=== PATIENT | female | born 1990 | race Caucasian/White ===

== ENCOUNTER 2022-05-31 09:03 | Day surgery (SDC) | payer OTHER ==
[~2022-05-31] VITALS: Ht 154.9 cm; Wt 90.9 kg
--- NOTE | ~2022-05-31 | OR ---
[facility] [address] [place], [place] [address] Draft DATE OF OPERATION: 05/31/2022 SURGEON: Dane Robertson DO JOY LOADING MACHINE OPERATOR: Iraj Diaz MD PROCEDURE: Laparoscopic lysis of adhesions, hysteroscopy, D and C. BLOOD LOSS: 50 mL. ANESTHESIA: General. FINDINGS: Large midline omental adhesion extending from the umbilicus inferiorly and laterally towards the left tube which was found to be the mesosalpinx at the mid-isthmic portion, the site of prior ligation. Round ligament was adherent to left pelvic sidewall. Bilateral ovaries appeared normal. Uterus appears mildly enlarged, but otherwise normal. No evidence of endometriosis lesions and bilateral ovarian fossa, posterior cul-de-sac or overlying the bladder, hysteroscopy, normal-appearing endometrial cavity. Bilateral tubal ostia visualized. INDICATIONS: The patient is a 32-year-old female, status post , tubal ligation, and lap crow, who presents for evaluation of significant dysmenorrhea and heavy menstrual bleeding. She strongly desires definitive surgical management in the form of a hysterectomy and has previously had retained IUD requiring surgical removal. Risks, benefits, and alternatives to diagnostic laparoscopy with hysteroscopy D and C for further evaluation were discussed and patient elected to proceed. DESCRIPTION OF PROCEDURE: The patient was taken to the operating room where she was positioned in dorsal lithotomy, placed under general anesthesia. She was prepped and draped in normal sterile fashion. Weighted speculum was placed in the vagina. Anterior lip of the cervix was grasped with an Allis clamp and cervix was attempted to be sequentially dilated with Hegar, however, resistance was met at the internal loss. Hulka clamp was placed. Surgeon's gloves were changed and attention was turned to the abdomen after PATIENT NAME: ISABELLA ARCOS OPERATIVE REPORT DATE OF : [birth year] REPORT #: [id number] PHYSICIAN: DANE ROBERTSON DO PCP: EDER LI PAC REPORT IS CONFIDENTIAL AND NOT TO BE RELEASED WITHOUT AUTHORIZATION [facility] [address] [place], [place] [address] Draft placement of Herrera catheter. An infraumbilical incision was made with a scalpel through a prior scar and carried down to the underlying layer of fascia with blunt and sharp dissection with Metzenbaum scissors. Fascia was grasped with hemostats elevated and incised with Metzenbaum scissors. Stay suture was placed on each of the superior and inferior margins of fascia with 0 Vicryl. The peritoneum was entered bluntly and finger sweep was significant for a thick intraabdominal adhesion. Decision was made to proceed with additional entry at Astorga's point. Stomach was evacuated by Anesthesia and local anesthetic was infiltrated at astorga's point in the left upper quadrant. Incision was made with a scalpel. A 5 mm trocar was used for direct entry. Proper placement was confirmed with the scope. Abdomen was insufflated with CO2 gas and was inspected demonstrating the significant intraabdominal adhesion. Once the pneumoperitoneum was fully achieved, an additional right lower quadrant trocar was placed after infiltration with local anesthetic and incision with a scalpel, also under direct visualization without complication or difficulty. LigaSure device was used to take down the omental adhesion working from the umbilicus laterally to the incorporated area of the mesosalpinx restoring full visualization and normal anatomy as much as possible. Trendelenburg positioning was then used to fully evaluate the pelvis, cul-de-sac for abnormalities with scarring as noted above and notable absence of endometriosis lesions. Tisseel was applied over the anterior abdominal wall at the site of the prior adhesion and anterior abdominal wall was monitored as trocars were removed and pneumoperitoneum was evacuated. Fascia was closed with 0 Vicryl in a running fashion. Stay sutures were tied overlying the Vicryl closure. Skin was closed with 4-0 Monocryl. Attention was then turned to the vagina. Hulka uterine manipulator was removed and hysteroscope was introduced and able to be passed into the uterine cavity without significant difficulty. Endometrial cavity was surveyed with normal findings as noted above. MyoSure Lite device was used to circumferentially curette the entire endometrial cavity with endometrial curetting submitted to pathology. All instrumentation was removed. Significant bleeding was noted from the cervix and uterus. 1 g TXA was administered. Bleeding at the site of the Hulka clamp was noted and a single stitch of 0 chromic in a [id number]-zd-ilats fashion was placed with resulting hemostasis. A 2nd laceration was noted on the left vaginal sidewall and was similarly repaired with chromic in a [id number] fashion with resulting hemostasis and uterine bleeding was noted to slow significantly after administration of TXA. Sponge and instrument counts were correct and the patient was taken to recovery in stable and satisfactory condition with plans to discuss definitive surgical management of AUB in the form of a hysterectomy at her postop visit. Dane Robertson DO PATIENT NAME: ISABELLA ARCOS Gilberto OPERATIVE REPORT DATE OF : [birth year] REPORT #: [id number] PHYSICIAN: DANE ROBERTSON DO PCP: EDER LI PAC REPORT IS CONFIDENTIAL AND NOT TO BE RELEASED WITHOUT AUTHORIZATION [facility] [address] [place], [place] [address], [place] [address] Draft EM/MODL /[id number] Copies: ~ PATIENT NAME: ISABELLA ARCOS OPERATIVE REPORT DATE OF : [birth year] REPORT #: [id number] PHYSICIAN: DANE ROBERTSON DO PCP: EDER LI PAC REPORT IS CONFIDENTIAL AND NOT TO BE RELEASED WITHOUT AUTHORIZATION
--- NOTE | 2022-05-31 13:59 | NUR ---
05/31/22 1359 Sheets,Ilsa 1333 PT ARRIVED TO PACU WITH ORAL AIRWAY IN PLACE AND 6L VIA MASK. RESP EVEN AND UNLABORED. JAW THRUST NEEDED OFF AND ON. 1334 JAW THRUST NO LONGER NEEDED. 1340 PT WOKE TO TACTILE STIMULI AND ORAL AIRWAY REMOVED. PT LOOKING AROUND ROOM AND IS REORIENTED. 1341 O2 REMOVED. PT DENIES NAUSEA AND PAIN. 1350 PLAN OF CARE DISCUSSED, PT REPORT 3/10 TOLERABLE PAIN.
[2022-05-31] MEDS ORDERED: IBUPROFEN800 MG PO (15:23)
[2022-05-31] MEDS ORDERED: PERCOCET 5-3251 EACH PO (15:23)
--- NOTE | 2022-05-31 15:47 | NUR ---
1415: PATIENT BACK IN DAY SURGERY ROOM FROM PACU. RATES PAIN 4/10. GIVEN RAYRAY CRACKERS TO EAT. ICE WATER PLACED AT BEDSIDE. IV SITE WNL. SCDs ON. ABDOMEN WITH 3 LAP SITES. LUQ SITE WITH BANDAID CDI. RLQ WITH BANDAID WITH SCANT AMOUNT OF DRAINAGE. UMBILICAL SITE WITH BANDAID AND MODERATE AMOUNT OF BLOODY DRAINAGE. REINFORCED WITH FLUFF GUAZE AND MEDIPORE TAPE. PERIPAD IN PLACE IS CLEAN, DRY AND INTACT. AT BEDSIDE. CALL LIGHT WITHIN REACH. 1435: PATIENT ASSISTED OOB AND TO BATHROOM. GAIT STEADY. VOID WITHOUT DIFFICULTY APPROXIMATELY 100 ML. GAIT STEADY BACK TO ROOM. PATIENT GETTING DRESSED. 1500: DR. STRAUSS IN TO SPEAK WITH PATIENT AND . 1530: PATIENT MEDICATED FOR 5/10 PAIN WITH 1 TAB OF PERCOCET. DISCHARGE INSTRUCTIONS GIVEN TO PATIENT AND . 1550: IV DC'D WNL. TIP INTACT. DRESSING APPLIED. PATIENT UP TO RESTROOM INDEPENDENTLY. GAIT STEADY. PATIENT DISCHARGED TO HOME VIA WHEELCHAIR WITH .
== END 2022-05-31 15:50 | disposition home or self-care (01) ==
LOC: DS 09:03 → OPS 09:03 → DS 11-28 09:00
PROVIDERS: ATTEND Obstetrics & Gynecology
PROC: 0UDB8ZZ Extraction of Endometrium, Via Natural or Artificial Opening Endoscopic (ICD-10-PCS; principal; 2022-05-31 11:00)
DX: N93.9 Abnormal uterine and vaginal bleeding, unspecified (principal); N94.6 Dysmenorrhea, unspecified; Z98.51 Tubal ligation status; Z98.891 History of uterine scar from previous surgery
CPT/HCPCS: J1100; J1885; J2405; J2704; J3010; J7121

== ENCOUNTER 2022-08-09 06:50 | Day surgery (SDC) | payer OTHER ==
[~2022-08-09] VITALS: Ht 154.9 cm; Wt 94.1 kg
--- NOTE | ~2022-08-09 | OR ---
[facility] [address] [place], [place] [address] Draft DATE OF OPERATION: 08/09/2022 SURGEON: Dane Robertson DO DEVELOPMENT WRITER: Dr. Bliss. PROCEDURE: Total laparoscopic hysterectomy, bilateral salpingectomy, lysis of adhesions, cystoscopy. PREOPERATIVE DIAGNOSES: Abnormal uterine bleeding, dysmenorrhea, pelvic adhesions. POSTOPERATIVE DIAGNOSES: Abnormal uterine bleeding, dysmenorrhea, pelvic adhesions. ANESTHESIA: General. BLOOD LOSS: 100 mL. COMPLICATIONS: None. FINDINGS: Significant pelvic adhesions, normal-appearing ovaries and tubes, status post bilateral tubal ligation. Otherwise normal-appearing uterus. INDICATIONS: The patient is a 32-year-old female with history of significant heavy menstrual bleeding. She has prior history of trial of IUD with required laparoscopic removal of IUD and personal history of migraines with auras contraindicating estrogen containing contraceptive, hysteroscopic endometrial sampling, negative for hyperplasia or malignancy. The patient strongly desired definitive surgical management. Risks, benefits, and alternatives to TLH, BS, and cysto were discussed at length and she strongly desired to proceed. She was initially scheduled for this procedure and was found to be thrombocytopenic with platelets of 102; on repeat, they were 99. Heme-Onc was consulted, recommended a steroid burst after which platelets improved to 247, and we were able to proceed. PATIENT NAME: ISABELLA ARCOS OPERATIVE REPORT DATE OF : [birth year] REPORT #: [id number] PHYSICIAN: DANE ROBERTSON DO PCP: EDER LI PAC REPORT IS CONFIDENTIAL AND NOT TO BE RELEASED WITHOUT AUTHORIZATION [facility] [address] [place], [place] [address] Draft DESCRIPTION OF PROCEDURE: The patient was taken back to the operating room. She was given 2 g Ancef, who was positioned in dorsal lithotomy, was prepped and draped in normal sterile fashion. Weighted speculum was placed in the vagina. Cervix was sequentially dilated with Hegar dilators with some difficulty. VCare uterine manipulator was placed. All other instrumentation was removed. Surgeon's gloves were changed and attention was turned to the abdomen. Local anesthetic was injected in the infraumbilical scar. Incision was made through the scar with a scalpel and carried down to the underlying fascia with blunt and sharp dissection with Metzenbaum scissors. Fascia was grasped with hemostats, elevated and incised with Metzenbaum scissors. Stay suture of 0 Vicryl was placed on each of the superior and inferior margins of fascia. Peritoneum was grasped with tonsil and incised with Metzenbaum scissors. Finger sweep confirmed intraabdominal placement and Shana on trocar was placed without difficulty. Pneumoperitoneum was achieved with CO2 gas. Laparoscopic camera confirmed intraabdominal placement. Assist port was made in the left lower quadrant. After infiltration with local anesthetic, 5 mm incision was made with the scar and trocar was placed under direct visualization without complication. Right lower quadrant incision was made through a prior scar from laparoscopy after infiltration with local anesthetic. An 8 mm expanding trocar was placed without difficulty under direct visualization. The patient was then placed in Trendelenburg and blunt graspers were used to elevate bowel from the pelvis, which was then surveyed with findings as noted above. Tubal remnants were then excised starting with left distal tube at the fimbriated end followed by left proximal tube followed by right distal and proximal tube, which were able to be removed as one. Each piece was removed under direct visualization for submission to pathology. Right round ligament was cauterized and cut with LigaSure device, which was continued to be used for the remainder of the case except as noted. Left utero-ovarian ligament was cauterized and cut followed by left round ligament, broad ligament, developed poorly in 2 planes, but the anterior leaf was dissected inferiorly towards the cervix about medially at the level of the VCare cup initiating a bladder flap. Some bladder adhesions were noted consistent with the patient's prior history of x3 and due to scarring, planes were difficult to delineate. Posterior broad ligament was then dissected down to the level of the uterosacral ligaments brought medially between the uterosacral ligaments, allowing skeletonization of the uterine vessels and cauterization of those vessels. In the similar manner, on the right, right utero-ovarian ligament was cauterized and cut level of the round ligament. Significant scarring was noted on the right as well once again making delineation of planes difficult. Anterior leaf of the broad ligament was brought down to the level of the cervix and then medially to meet the prior dissection and further developed the bladder flap. Posterior leaf of the broad ligament was brought down and medially at the level of the cervix also meeting prior dissection with some difficulty maintaining the avascular plane. Uterine vessels were skeletonized, cauterized, and cut, and uterus was noted to fully petey with good PATIENT NAME: ISABELLA ARCOS OPERATIVE REPORT DATE OF : 91 REPORT #: [id number] PHYSICIAN: DANE ROBERTSON DO PCP: EDER LI PAC REPORT IS CONFIDENTIAL AND NOT TO BE RELEASED WITHOUT AUTHORIZATION [address] [address] Draft hemostasis. At this point, LigaSure device was removed. Harmonic Sonicision device was introduced and used for the colpotomy sting within the groove of the [employer] uterine manipulator. The colpotomy was completed without difficulty. Uterus was delivered vaginally. Vaginal packing was placed. Surgeon's gloves were again changed and attention was returned to the abdomen. Minor bleeding was noted at the right apex, which was cauterized with LigaSure device. Once hemostasis was achieved, vaginal cuff was closed with V-Loc suture using the Endo Stitch device in a running fashion. Tisseel was applied overlying the cuff closure with excellent hemostasis noted. Pneumoperitoneum was evacuated monitoring operative site. Continued hemostasis was noted. Fascia was closed with 0 Vicryl in a running fashion with significant challenge. Subcutaneous layer of the fascial incision was closed with 4-0 Monocryl and the skin was closed with 4-0 Monocryl at each incision site. Herrera catheter was removed. Cystoscope was introduced. Bladder was carefully inspected with dome noted to be intact. No signs of puckering or suture were visualized. Bladder distended appropriately and bilateral ureteral jets were visualized. All instrumentation was removed. Herrera catheter was replaced. Sponge and instrument counts were correct, and the patient was taken to recovery in stable and satisfactory condition. DO TRENT Mahoney/AMELIAL /[id number] Copies: ~ PATIENT NAME: ISABELLA ARCOS OPERATIVE REPORT DATE OF : [birth year] REPORT #: [id number] PHYSICIAN: DANE ROBERTSON DO PCP: EDER LI PAC REPORT IS CONFIDENTIAL AND NOT TO BE RELEASED WITHOUT AUTHORIZATION
[~2022-08-09 06:50] MED LIST: IBUPROFEN800 MG PO; PERCOCET 5-3251 EACH PO
--- NOTE | 2022-08-09 12:29 | NUR ---
08/09/22 1229 Christy Simpson 1213- PT ARRIVES TO PACU REACTIVE TO VOICE. PT FALLS TO SLEEP EASILY WHEN NOT BEING TALKED TO. RESP EVEN AND UNLABORED. OXYGEN SAT HIGH 90'S TO 100% ON 6L VIA MASK. 1222- OXYGEN TITRATED OFF. PT IS MORE ALERT AND REPORTS PAIN IS "THERE", RATING THE PAIN A 6/10. PT DENIES NEEDING ANYTHING FOR PAIN AT THIS TIME.
--- NOTE | 2022-08-09 13:22 | NUR ---
PT ALERT, ORIENTED AND SUPPORTED BY HER YARA. BOTH SEEM INFORMED, YARA WILL REMAIN FOR DC. THANKED ME FOR VISIT, GAVE BLESSING
--- NOTE | 2022-08-09 13:39 | NUR ---
LE 1305 PATIENT BACK FROM PACU. PATIENT REPORT RECIEVED FROM KELLY GUADARRAMA. PATIENT IS DROWSY BUT ORIENTED. BREATHING EQUAL AND UNLABORED. OXYGEN SATURATIONS ABOVE 95% ON ROOM AIR. PATIENT PAIN A 3/10 TOLERABLE AT THIS TIME BUT STATES "CLIMBING." SURGICAL SITE HAS SMALL AMOUNT OF RED DRAINAGE. MARIA LUZ PAD HAS NO DRAINAGE AT THIS TIME. IVF INFUSING. SCD'S ON. NO QUESTIONS OR FUTHER NEEDS. LE 1310 PATIENT COOPER CATH REMOVED 200 MLS OF YELLOW AND CLEAR URINE.
--- NOTE | 2022-08-09 13:44 | NUR ---
LE 1335 PATIENT PAIN IS A 5/10 AND DENIES BEING NAUSEATED. ABLE TO EAT PUDDING AND DRINK WATER. PRN PAIN MEDICINE GIVEN.
--- NOTE | 2022-08-09 14:19 | NUR ---
LE 1410 PATIENT ALERT AND ORIENTED. PATIENT PAIN IS A 5/[address] PAIN MEDICINE[address] STRAUSS NOTIFIED NEW ORDERS GIVEN. PATIENT BREATHING EQUAL AND UNLABORED. OXYGEN SATURATIONS ABOVE 90% ON ROOM AIR. SURGICAL SITE HAS SMALL AMOUNT OF RED DRAINAGE. SMALL SPOTTING ON MARIA LUZ PAD. IVF INFUSING. SCD'S ON. PATIENT DRINKING WATER AND TALKING TO . CALL LIGHT WITHIN REACH NO FUTHER NEEDS. NO QUESTIONS AT THIS TIME.
--- NOTE | 2022-08-09 14:34 | NUR ---
LE 1425 PATIENT GIVEN PRN PAIN MEDICINE.
--- NOTE | 2022-08-09 15:44 | NUR ---
LE 1500 PATIENT UP TO THE RESTROOM. PATIENT ABLE TO VOID 200 MLS OF CLEAR AND YELLOW URINE. PATIENT STATES "I FEEL MUCH BETTER WALKING AROUND." LE 1535 PATIENT HAS MET DISCHARGE CRITERIA. PATIENT GIVEN DISCHARGE INSTRUCTIONS AND UNDERSTOOD. NO QUESTIONS AT THIS TIME. IV D/C'D WNL. PATIENT DRESSED SELF AND TOLERATED IT WELL. PATIENT WHEELED OUT OF FACILITY NO FUTHER NEEDS.
--- NOTE | 2022-08-13 15:55 | PATH ---
[facility] [address] [place], [place] [address] Signed SPECIMEN(S): A UTERUS, CERVIX, BILATERAL TUBES SPECIMEN SOURCE: A. UTERUS, CERVIX, BILATERAL TUBES CLINICAL HISTORY: Abnormal uterine bleeding, dysmenorrhea, intra-abdominal adhesions. FINAL PATHOLOGIC DIAGNOSIS: Uterus, cervix, bilateral tubes: - Benign proliferative endometrium, negative for hyperplasia or atypia. - Benign endocervix and ectocervix. - Lower uterine segment defect measuring 1 cm, without significant atypia. - Benign bilateral oviducts. JVR:[facility]:C2NR MICROSCOPIC EXAMINATION: Histologic sections of all submitted blocks are examined by light microscopy. These findings, together with the gross examination, support the pathologic diagnosis. GROSS DESCRIPTION: The specimen, labeled and designated "Eunice Arcos, " and designated on the requisition "uterus, cervix, bilateral tubes," is received in formalin and consists of a 95.9 gram uterus and cervix with fallopian tubes. The uterus is 4.6 x 4.4 x 9.3 cm (cornu-cornu x anterior-posterior x fundus-ectocervix). The serosal surface is pink and smooth with adherent pink-white membranous tissue. The ectocervical mucosa is pale pink focally congested and disrupted. Serial sectioning of the cervix fails to demonstrate any gross abnormalities. The triangular endometrial cavity is lined by a pink-red smooth endometrium that has an average thickness of 0.3 cm. Sectioning through the uterus reveals a pink moderately trabeculated myometrium with one lower uterine segment defect that is 1.0 cm. The first fallopian tube is 3.5 x 0.7 cm, with delicate fimbriae. The serosa is violaceous and smooth. Cut sections reveal a pinpoint lumen. The second fallopian tube is 4.3 x 0.9 cm, with delicate fimbriae. The serosa is violaceous and smooth and inked. Cut sections reveal a pinpoint lumen. Research Chemist sections are submitted in five PATIENT NAME: ISABELLA ARCOS PATHOLOGY DATE OF : [birth year] REPORT #: [id number] PHYSICIAN: DARRIN SANABRIA PCP: EDER LI PAC REPORT IS CONFIDENTIAL AND NOT TO BE RELEASED WITHOUT AUTHORIZATION [facility] [address] [place], [place] [address] Signed cassettes. Cassette Summary: (A1) first fallopian tube, entirely submitted (A2) second fallopian tube, entirely submitted (A3) cervix (A4-A5) uterine wall and lower uterine segment defect FB (under the direct supervision of a pathologist) The Gross Description was prepared using a voice recognition system. The report was reviewed for accuracy; however, sound-alike word errors, addition and/or deletions may occur. If there is any question about this report, please contact Client Services. PERFORMING LABORATORY: The technical component was performed by [employer], [address] [place] [id number] (CLIA# [id number]). Professional interpretation was performed by [facility], [address] [place] [id number] (CLIA#: [id number]). Diagnostician: Warren Mckee MD Pathologist Electronically Signed 08/13/2022 Copies: ~ PATIENT NAME: ISABELLA ARCOS PATHOLOGY DATE OF : [birth year] REPORT #: [id number] PHYSICIAN: DARRIN SANABRIA PCP: EDER LI PAC REPORT IS CONFIDENTIAL AND NOT TO BE RELEASED WITHOUT AUTHORIZATION
== END 2022-08-09 15:35 | disposition home or self-care (01) ==
LOC: OPS 06:50 → DS 06:50 → OPS 07:30
PROVIDERS: ATTEND Obstetrics & Gynecology
PROC: 0UT94ZZ Resection of Uterus, Percutaneous Endoscopic Approach (ICD-10-PCS; principal; 2022-08-09 09:45)
PROC: 0UT74ZZ Resection of Bilateral Fallopian Tubes, Percutaneous Endoscopic Approach (ICD-10-PCS; 2022-08-09 09:45)
DX: N93.9 Abnormal uterine and vaginal bleeding, unspecified (principal); N94.6 Dysmenorrhea, unspecified; Z98.51 Tubal ligation status; Z98.891 History of uterine scar from previous surgery; K66.0 Peritoneal adhesions (postprocedural) (postinfection)
CPT/HCPCS: J0131; J0690; J1100; J1170; J1885; J2001; J2250; J2405; J2704; J3010; J3475; J7121